=== PATIENT | female | born 1945 | race Caucasian/White ===

== ENCOUNTER → 2017-11-18 | Emergency (ER) | payer OTHER ==
[~2017-11-18] VITALS: Ht 162.6 cm; Wt 61.7 kg
[~2017-11-18] MED LIST: ALZ SR CAPLET1 EACH; ARICEPT5 MG; LOTENSIN20 MG; OSTERA TABLET1 EACH; ZOCOR20 MG
== END | disposition left against medical advice (07) ==
LOC: ER 12:38
DX: Z53.20 Procedure and treatment not carried out because of patient's decision for unspecified reasons (principal)

== ENCOUNTER 2021-09-10 20:56 | Emergency (ER) | payer OTHER ==
[~2021-09-10] VITALS: Ht 152.4 cm; Wt 54.4 kg
[2021-09-10] MEDS ORDERED: RESTORIL15 M1 PO (21:19)
== END 2021-09-10 22:58 | disposition home or self-care (01) ==
LOC: ER 20:56
DX: S01.01XA Laceration without foreign body of scalp, initial encounter (principal); S19.89XA Other specified injuries of other specified part of neck, initial encounter; X58.XXXA Exposure to other specified factors, initial encounter; Y93.89 Activity, other specified; Y92.89 Other specified places as the place of occurrence of the external cause; Z88.0 Allergy status to penicillin

== ENCOUNTER 2021-09-21 10:24 | Emergency (ER) | payer OTHER ==
[~2021-09-21] VITALS: Ht 162.6 cm; Wt 44.9 kg
[~2021-09-21 10:24] MED LIST changes: +RESTORIL15 M1 PO
== END 2021-09-21 12:39 ==
LOC: ER 10:24
DX: Z48.02 Encounter for removal of sutures (principal)

== ENCOUNTER 2021-10-03 11:20 | Emergency (ER) | payer OTHER ==
[~2021-10-03] VITALS: Ht 154.9 cm; Wt 45.4 kg
== END 2021-10-03 14:38 | disposition home or self-care (01) ==
LOC: ER 11:20
DX: R42 Dizziness and giddiness (principal); G30.9 Alzheimer's disease, unspecified; F02.80 Dementia in other diseases classified elsewhere, unspecified severity, without behavioral disturbance, psychotic disturbance, mood disturbance, and anxiety; Z85.89 Personal history of malignant neoplasm of other organs and systems; Z20.822 Contact with and (suspected) exposure to COVID-19

== ENCOUNTER 2021-12-02 19:33 | Emergency (ER) | payer OTHER ==
[~2021-12-02] VITALS: Ht 154.9 cm; Wt 45.4 kg
== END 2021-12-03 01:45 | disposition home or self-care (01) ==
LOC: ER 19:33
DX: R42 Dizziness and giddiness (principal); G30.9 Alzheimer's disease, unspecified; F02.80 Dementia in other diseases classified elsewhere, unspecified severity, without behavioral disturbance, psychotic disturbance, mood disturbance, and anxiety; Z20.822 Contact with and (suspected) exposure to COVID-19

== ENCOUNTER 2022-02-12 14:35 | Outpatient (CLI) | payer OTHER | END 2022-02-12 14:42 | disposition home or self-care (01) | LOC: TOM 14:35 | PROVIDERS: ATTEND Orthopaedic Surgery | DX: S42.351A Displaced comminuted fracture of shaft of humerus, right arm, initial encounter for closed fracture (principal) ==

== ENCOUNTER 2022-04-18 08:20 | Outpatient (CLI) | payer OTHER | END 2022-04-18 08:25 | disposition home or self-care (01) | LOC: LAB 08:20 | PROVIDERS: ATTEND Radiology Diagnostic Radiology | DX: G30.9 Alzheimer's disease, unspecified (principal) ==

== ENCOUNTER 2022-04-18 11:02 | Outpatient (CLI) | payer OTHER | END 2022-04-18 12:08 | disposition home or self-care (01) | LOC: MRI 11:02 | DX: G30.9 Alzheimer's disease, unspecified (principal); I63.9 Cerebral infarction, unspecified | CPT/HCPCS: 70553 ==

== ENCOUNTER 2022-05-10 08:27 | Outpatient (CLI) | payer OTHER | END 2022-05-10 08:28 | disposition home or self-care (01) | LOC: NUCLEAR 08:27 | DX: I63.9 Cerebral infarction, unspecified (principal) ==

== ENCOUNTER 2022-07-08 09:58 | Emergency (ER) | payer OTHER ==
[~2022-07-08] VITALS: Ht 157.5 cm; Wt 36.3 kg
== END 2022-07-08 14:52 | disposition home or self-care (01) ==
LOC: ER 09:58
DX: R53.1 Weakness (principal); R05.8 Other specified cough; Z20.822 Contact with and (suspected) exposure to COVID-19

== ENCOUNTER 2022-08-15 12:56 | Inpatient (IN) | payer OTHER ==
[~2022-08-15] VITALS: Ht 154.9 cm; Wt 36.3 kg
[2022-08-15] MEDS ORDERED: RISPERDAL0.5 MG PO (13:22)
[2022-08-15] MEDS ORDERED: ZOLOFT25 MG PO (13:22)
--- NOTE | 2022-08-15 13:22 | NUR ---
PTE LLEGA A TOLU DE EMREGENCIA EN AMBULANCIA POR DEBILIDAD Y NO QUIERE LEVANTARSE. SE LE TANO S/V Y SE ACOMODA EN DANELLE . PTE SE LE REALIZA DXT LA CUAL SE DOCUMENTA.
--- NOTE | 2022-08-15 14:33 | NUR ---
PTE EVALUADA POR EL DR GIFFORD QUIEN ORDENA TRATAMIENTO LA CUAL SE EJECUTA. SE MANTIENE BAJO OBSERVACION. PTE LLEVGA CANALIZA CON ANGIO #20 EN MANO IZQUIERDA POR AMBULANCIA.
--- NOTE | 2022-08-15 21:04 | NUR ---
PTE ALERTA Y ACTIVO QUIEN REACCIONA A ESTIMULOS SE LE REALIZA CAMBIO DE PANAL Y SE OBSERVA AREA ENROJECIDA. FAMILIAR VERBALIZA QUE ESTA ASI DESDE PERRY CASA. SE REALIZA CAMBIO DE POSICION Y SE COLOCA ALMUADA.
== END 2022-08-18 14:12 | disposition home or self-care (01) | DRG 179 ==
LOC: ER 12:56 → SEC-K 23:44 → MEDJ 08-17 16:01 → SEC-K 08-17 17:30 → MEDJ 08-17 19:33
PROVIDERS: ADMIT Internal Medicine; ATTEND Internal Medicine
PROC: BW24ZZZ Computerized Tomography (CT Scan) of Chest and Abdomen (ICD-10-PCS; principal; 2022-08-15)
PROC: BW28ZZZ Computerized Tomography (CT Scan) of Head (ICD-10-PCS; 2022-08-15)
PROC: BW21ZZZ Computerized Tomography (CT Scan) of Abdomen and Pelvis (ICD-10-PCS; 2022-08-16)
DX: U07.1 COVID-19 (principal); R13.10 Dysphagia, unspecified; G30.9 Alzheimer's disease, unspecified; F02.80 Dementia in other diseases classified elsewhere, unspecified severity, without behavioral disturbance, psychotic disturbance, mood disturbance, and anxiety; Z74.01 Bed confinement status; R41.82 Altered mental status, unspecified

== ENCOUNTER 2022-08-31 14:31 | Inpatient (IN) | payer OTHER ==
[~2022-08-31] VITALS: Ht 154.9 cm; Wt 40.8 kg
[~2022-08-31 14:31] MED LIST changes: +RISPERDAL0.5 MG PO; +ZOLOFT25 MG PO
--- NOTE | 2022-08-31 18:04 | NUR ---
SE LE ORIENTA A PACIENTE SOBRE LAS ORDENES MEDICAS, REFIERE ENTENDER LAS MISMAS. SE CANALIZA Y SE LE COLOCA LOS IVF'S, SE LE JANETH LAS MUETRAS Y SE LE ADMINISTRAN LOS MEDICAMENTOS UJSTIN LAS ORDENES MEDICAS.
== END 2022-10-03 16:43 | disposition home or self-care (01) | DRG 854 ==
LOC: ER 14:31 → MEDJ 22:49 → SURH 22:49 → MEDI 09-01 02:18 → SURH 09-01 06:44
PROVIDERS: ADMIT Internal Medicine; ATTEND Internal Medicine
PROC: 4A12X4Z Monitoring of Cardiac Electrical Activity, External Approach (ICD-10-PCS; 2022-09-01)
PROC: 02HV33Z Insertion of Infusion Device into Superior Vena Cava, Percutaneous Approach (ICD-10-PCS; 2022-09-10)
PROC: 30243N1 Transfusion of Nonautologous Red Blood Cells into Central Vein, Percutaneous Approach (ICD-10-PCS; 2022-09-13)
PROC: 0JB70ZZ Excision of Back Subcutaneous Tissue and Fascia, Open Approach (ICD-10-PCS; principal; 2022-09-27)
DX: A41.52 Sepsis due to Pseudomonas (principal); E46 Unspecified protein-calorie malnutrition; N39.0 Urinary tract infection, site not specified; N17.9 Acute kidney failure, unspecified; Z68.1 Body mass index [BMI] 19.9 or less, adult; R64 Cachexia; E87.1 Hypo-osmolality and hyponatremia; F02.818 Dementia in other diseases classified elsewhere, unspecified severity, with other behavioral disturbance; G30.9 Alzheimer's disease, unspecified; L89.152 Pressure ulcer of sacral region, stage 2; B96.5 Pseudomonas (aeruginosa) (mallei) (pseudomallei) as the cause of diseases classified elsewhere; I10 Essential (primary) hypertension; Z66 Do not resuscitate; Z74.01 Bed confinement status; R09.02 Hypoxemia; R13.10 Dysphagia, unspecified